=== PATIENT | male | born 1970 ===

== ENCOUNTER → 2019-12-20 15:04 | Outpatient (BNVA) | payer SELFPAY | PROVIDERS: Referring Provider Specialist; Visit Provider Psychiatry & Neurology Neurology | DX: G56.03 Carpal tunnel syndrome, bilateral upper limbs (principal) | CPT/HCPCS: 95885; 95910 ==

== ENCOUNTER 2020-01-04 14:56 | Outpatient (CLI) | payer SELFPAY | END 2020-01-04 14:57 | disposition home or self-care (01) | LOC: SPT 14:56 | PROVIDERS: Visit Provider Orthopaedic Surgery | DX: G56.03 Carpal tunnel syndrome, bilateral upper limbs (principal) | CPT/HCPCS: L3908 ==

== ENCOUNTER 2020-06-05 14:40 | Outpatient (CLI) | payer SELFPAY ==
--- NOTE | 2020-06-05 14:48 | MR_ITS ---
WS: [id number] MRI BRAIN WITH AND WITHOUT CONTRAST HISTORY: HEADACHE COMPARISON: None available. TECHNIQUE: Multiplanar imaging performed through the brain with Prohance 16 ml's IV. No acute infarcts are seen. Menjivar-white matter differentiation is well preserved. No susceptibility artifacts or prior lacunar infarcts. Ventricles and extra-axial spaces are normal. Clivus and pituitary gland are normal. Visualized posterior fossa and brainstem are also normal. Postcontrast images are negative for masses or vascular malformations. Dural venous sinuses are normal. Paranasal sinuses: Small mucous retention cyst in the floor the RIGHT maxillary sinus. Mastoid air cells: Normal. Calvarium and scalp: Normal. MR/MR head wo/w con [id number] IMPRESSION: 1. Normal MRI brain with contrast. 2. No masses or acute infarct.
== END 2020-06-05 14:41 | disposition home or self-care (01) ==
LOC: RADSHAW 14:45
PROVIDERS: PCP Family Medicine; Visit Provider Family Medicine
DX: R51 Headache (principal)
CPT/HCPCS: 70553; A9579